=== PATIENT | female | born 1955 | race Caucasian/White ===

== ENCOUNTER 2017-04-24 00:11 | Emergency (ER) | payer SELFPAY ==
[2017-04-24 00:21] VITALS: BP 188/91; PULSE 76; TEMP 97.8; BMI 34.9
--- NOTE | 2017-04-24 00:31 | PDOC ---
History of Present Illness - General Chief Complaint: Pain, Acute Stated Complaint: LT FLANK PAIN History Source: Patient Exam Limitations: No Limitations - History of Present Illness Initial Comments: 04/24/17 00:35 This is a 61-year-old female with history of renal colic who comes in complaining of acute onset of left flank pain radiating to her left lower quadrant area. Pain is associated with some nausea. Patient denies any fevers, chills. Patient denies any frequency or dysuria. Patient said there is no gross hematuria but there is a reddish tinge to her urine. PAST MEDICAL HISTORY: As per history of present illness PAST SURGICAL HISTORY: no significant history FAMILY HISTORY: no pertinant history SOCIAL HISTORY: Pt lives with family and is employed. MEDICATIONS: reviewed ALLERGIES: As per nursing notes Review of Systems General: No fevers or chills, no weakness, no weight loss HEENT: No change in vision. No sore throat,. No ear pain CardioVascular: No chest pain or shortness of breath Respiratory:No cough, or wheezing. Gastrointestinal: Positive nausea, no vomitting, diarrhea or constipation, No rectal bleeding Genitourinary: No dysuria, hematuria, or frequency Musculoskeletal: No joint or muscle pain or swelling Neurologic: No headache, vertigo, dizziness or loss of consciousness Psychiatric: nor depression Skin: No rashes or easy bruising Endocrine: no increased thirst or abnormal weight change Allergic: no skin or latex allergy All other systems reviewed and normal GENERAL: The patient is awake, alert, and fully oriented, in no acute distress. HEAD: Normal with no signs of trauma. EYES: Pupils equal, round and reactive to light, extraocular movements intact, sclera anicteric, conjunctiva clear. Back/flank: There is left flank tenderness on palpation EXTREMITIES: Normal range of motion, no edema. NEUROLOGICAL: Normal speech, normal gait. PSYCH: Normal mood, normal affect. SKIN: Warm, Dry, normal turgor, no rashes or lesions noted. 04/24/17 02:35 CAT scan shows a 8 mm mid left ureteral stone that his a moderate degree of left -sided hydronephrosis with some mild perinephric inflammatory changes. Assessment and plan: This is a 61-year-old female who comes in complaining of left flank pain with some associated nausea. Patient has history of renal colic. Patient has a large obstructing 8 mm stone. Patient is on methotrexate and has rheumatoid arthritis however there is a mild elevation in her white count but no left shift. This most likely is secondary to the methotrexate and prednisone that she takes. Discussed with patient the likelihood that she will not be able to pass the stone. Patient said last time she was also unable to pass the stone and required lithotripsy. Prescriptions were sent to patient's pharmacy for Percocet, Zofran, Macrobid and Flomax. Patient was given referral to a urologist and told to call the urologist this morning Dr. Guerra. Patient discharged home with her daughter. Past History - Past Medical History Allergies/Adverse Reactions: Allergies Allergy/AdvReac Type Severity Reaction Status Date / Time Sulfa (Sulfonamide Allergy Verified 01/18/13 12:21 Antibiotics) varenicline tartrate Allergy Verified 04/24/17 00:18 [From Chantix] Home Medications: Ambulatory Orders Methotrexate [Mexate -] 5 mg PO Q7D #0 01/18/13 Prednisone [Deltasone -] 1 mg PO DAILY #0 01/18/13 Amlodipine Besylate 5 mg PO DAILY 04/24/17 Atorvastatin Ca [Lipitor] 40 mg PO HS 04/24/17 Folic Acid 1 mg PO DAILY 04/24/17 Metoprolol Succinate [Toprol Xl -] 25 mg PO DAILY 04/24/17 Nitrofurantoin Monohyd/M-Cryst [Macrobid -] 100 mg PO BID #14 capsule 04/24/17 Ondansetron [Zofran *Odt*] 8 mg SL TID PRN #12 od.tablet 04/24/17 Oxycodone HCl/Acetaminophen [Percocet 5-325 mg Tablet] 1 - 2 tab PO Q4H #20 tablet MDD 8 04/24/17 Tamsulosin HCl [Flomax] 0.4 mg PO DAILY #30 cap.er.24h 04/24/17 Asthma: No Cancer: No Diabetes: No HTN: Yes Hypercholesterolemia: Yes Kidney Stones: Yes Seizures: No Other medical history: RA - Immunization History Td Vaccination: No - Suicide/Smoking/Psychosocial Hx Smoking Status: Yes Smoking History: Current every day smoker Have you smoked in the past 12 months: Yes Number of Cigarettes Smoked Daily: 10 Information on smoking cessation initiated: Yes 'Breaking Loose' booklet given: 04/24/17 Hx Alcohol Use: No Drug/Substance Use Hx: No Substance Use Type: None Hx Substance Use Treatment: No *Physical Exam - Vital Signs Last Vital Signs Temp Pulse Resp BP Pulse Ox 97.8 F 76 18 188/91 93 L 04/24/17 00:18 04/24/17 00:18 04/24/17 00:18 04/24/17 00:18 04/24/17 00:18 ED Treatment Course - LABORATORY CBC & Chemistry Diagram: 04/24/17 00:30 04/24/17 00:30 *DC/Admit/Observation/Transfer Diagnosis at time of Disposition: Renal colic on left side - Discharge Dispostion Disposition: HOME Condition at time of disposition: Stable Admit: No - Prescriptions Prescriptions: Tamsulosin HCl [Flomax] 0.4 mg PO DAILY #30 cap.er.24h Oxycodone HCl/Acetaminophen [Percocet 5-325 mg Tablet] 1 - 2 tab PO Q4H #20 tablet MDD 8 Ondansetron [Zofran *Odt*] 8 mg SL TID PRN #12 od.tablet PRN Reason: Nausea - Patient Instructions Additional Instructions: Your CAT scan shows that you have a 8 mm kidney stone that is causing some partial blockage of the urine flow. It is important that you stay well hydrated. For pain take Percocet one to 2 tablets every 4-6 hours if needed in addition to that you can also take ibuprofen and Tylenol as directed on the bottle. If you are nauseous takes Zofran 1 tablet as often as 3 times a day dissolve under your tongue. To help keep the urine flowing take Flomax once a day. To help prevent infection take Macrobid 1 tablet twice a day. It is very important that you call the urologist this morning and at him know that you are here that you have a 8 mm stone that is causing some partial obstruction and that last time you have a stone it needed to be broken up with lithotripsy. The urologist is Dr. Guerra his phone number is [phone]. Return to the emergency department immediately with ANY new, persistent or worsening symptoms. Continue any medications as previously prescribed by your physician. You should follow up with your primary doctor as soon as possible regarding today's emergency department visit. . Please make sure your doctor reviews the results of your emergency evaluation. Thank you for coming to the Emergency Department today for your care. It was a pleasure to see you today. Please note that your evaluation is INCOMPLETE until you follow-up with your doctor.
[2017-04-24] MEDS ORDERED: ONDANSETRON 4 MG/2 ML VIAL IVPB ONE (00:35)
[2017-04-24] MEDS ORDERED: KETOROLAC TROMETHAMINE 30 MG/1 ML VIAL IVPUSH ONE (00:35)
[2017-04-24] MEDS ORDERED: morphine CARPU-JECT 2 MG/1 ML DISP.SYRIN IVPUSH ONE (00:35)
[2017-04-24] MEDS ORDERED: SODIUM CHLORIDE 1,000 ML IV ONE (00:35)
[2017-04-24] MEDS ORDERED: KETOROLAC TROMETHAMINE 30 MG/1 ML VIAL ONE (00:37)
[2017-04-24] MEDS ORDERED: ONDANSETRON 4 MG/2 ML VIAL ONE (00:37)
[2017-04-24] MEDS ORDERED: morphine CARPU-JECT 2 MG/1 ML DISP.SYRIN ONE (00:37)
[2017-04-24 02:02] LABS: BASOPHIL 0.7 % (0-2.0); MCH 32.8 pg (25.7-33.7); MCHC 34.4 g/dl (32.0-36.0); MEAN CELL VOLUME 95.5 fl (80-96); MEAN PLT VOLUME 8.8 fl (7.5-11.1); NEUTROPHILS 72.9 % (42.8-82.8); PLATELET COUNT 233 K/MM3 (134-434); RDW 13.8 % (11.6-15.6); WHITE BLOOD COUNT 13.6 K/mm3 (4.0-10.0)
[2017-04-24 02:05] LABS: PH,URINE 6.5 (5.0-8.0); URINE APPEARANCE CLEAR; URINE BILIRUBIN NEGATIVE (NEGATIVE); URINE BLOOD 3+ (NEGATIVE); URINE COLOR LT. RED; URINE GLUCOSE (UA) NEGATIVE (NEGATIVE); URINE KETONE TRACE (NEGATIVE); URINE LEUK ESTERASE NEGATIVE (NEGATIVE); URINE NITRITE NEGATIVE (NEGATIVE); URINE PROTEIN TRACE (NEGATIVE); URINE UROBILINOGEN 0.2 mg/dL (0.2-1.0)
[2017-04-24 02:14] LABS: URINE MUCUS RARE; URINE RBC 1274 /hpf (0-3); URINE WBC 34 /hpf (3-5)
[2017-04-24 02:31] LABS: ALBUMIN 4.1 g/dl (3.4-5.0); ANION GAP 10 (8-16); CALCIUM 8.6 mg/dL (8.5-10.1); CO2 25 mmol/L (21-32); GLUCOSE,RANDOM 123 mg/dL (74-106)
[2017-04-24 02:34] LABS: ALK PHOS 53 U/L (45-117); BILIRUBIN,TOTAL 0.7 mg/dL (0.2-1.0); CREATININE 0.9 mg/dL (0.55-1.02); SGOT/AST 15 U/L (15-37); SGPT/ALT 28 U/L (12-78)
[2017-04-24] MEDS ORDERED: NITROFURANTOIN MACROCRYSTAL 50 MG CAPSULE (FP) ONE (02:45)
[2017-04-24] MEDS ORDERED: NITROFURANTOIN MACROCRYSTAL 50 MG CAPSULE (FP) PO SCH (02:45)
== END 2017-04-24 02:53 | disposition home or self-care (01) ==
LOC: FER 00:11
PROC: 3E0333Z Introduction of Anti-inflammatory into Peripheral Vein, Percutaneous Approach (ICD-10-PCS; principal; 2017-04-24)
PROC: 3E033NZ Introduction of Analgesics, Hypnotics, Sedatives into Peripheral Vein, Percutaneous Approach (ICD-10-PCS; 2017-04-24)
PROC: 3E033GC Introduction of Other Therapeutic Substance into Peripheral Vein, Percutaneous Approach (ICD-10-PCS; 2017-04-24)
PROC: 3E0337Z Introduction of Electrolytic and Water Balance Substance into Peripheral Vein, Percutaneous Approach (ICD-10-PCS; 2017-04-24)
DX: R30.0 Dysuria (principal); F17.210 Nicotine dependence, cigarettes, uncomplicated; I10 Essential (primary) hypertension; E78.00 Pure hypercholesterolemia, unspecified
CPT/HCPCS: 36415; 74176-TC; 80053; 81003; 81015; 85025; 99282-25